=== PATIENT | female | born 1975 | race Caucasian/White ===

== ENCOUNTER 2022-02-19 19:31 | Emergency (ER) | payer MEDICAID ==
[~2022-02-19] VITALS: Ht 160 cm; Wt 68.2 kg
[2022-02-19 22:00] VITALS: BP 123/79
== END 2022-02-19 22:22 | disposition home or self-care (01) ==
LOC: EMS 19:35
DX: M79.672 Pain in left foot (principal); Z90.89 Acquired absence of other organs; Z88.8 Allergy status to other drugs, medicaments and biological substances
CPT/HCPCS: 99283

== ENCOUNTER 2022-10-18 20:45 | Emergency (ER) | payer MEDICAID ==
[~2022-10-18] VITALS: Ht 160 cm; Wt 63.6 kg
[2022-10-18 21:51] LABS: COVID AG,FIA SOURCE NASOPHARYNGEAL
[2022-10-18 22:09] LABS: INFLUENZA TYPE A NEGATIVE FOR TYPE A (NEGATIVE); INFLUENZA TYPE B NEGATIVE FOR TYPE B (NEGATIVE)
[2022-10-18] MEDS ORDERED: ACET-66 PO (23:23)
[2022-10-18] MEDS ORDERED: GUAIFDM PO (23:23)
[2022-10-18] MEDS ORDERED: IBUP-1554 PO (23:23)
[2022-10-18] MEDS ORDERED: IBUPROFEN 600 MG TABLET PO ONE (23:30)
[2022-10-18] MEDS ORDERED: ACETAMINOPHEN 500 MG TABLET PO ONE (23:30)
[2022-10-18] MEDS ORDERED: GuaiFENesin/D-METHORPHAN [SUGAR-FREE] 200-20MG/10 ML SYRUP UDCUP PO ONE (23:30)
[2022-10-19] VITALS: BP 121/87
== END 2022-10-19 02:05 | disposition home or self-care (01) ==
LOC: EMS 20:45
DX: S46.912A Strain of unspecified muscle, fascia and tendon at shoulder and upper arm level, left arm, initial encounter (principal); J06.9 Acute upper respiratory infection, unspecified; Z90.49 Acquired absence of other specified parts of digestive tract; Z98.890 Other specified postprocedural states; Z88.8 Allergy status to other drugs, medicaments and biological substances; Z20.822 Contact with and (suspected) exposure to COVID-19; X50.3XXA Overexertion from repetitive movements, initial encounter; Y93.89 Activity, other specified; Y92.89 Other specified places as the place of occurrence of the external cause; Y99.0 Civilian activity done for income or pay
CPT/HCPCS: 87804; 99284; 73030-TC; Z7502; Z7610

== ENCOUNTER 2023-03-22 10:42 | Emergency (ER) | payer MEDICAID ==
[~2023-03-22] VITALS: Ht 152.4 cm; Wt 73.6 kg
[~2023-03-22 10:42] MED LIST: ACET-66 PO; GUAIFDM PO; IBUP-1554 PO
[2023-03-22] MEDS ORDERED: IBUPROFEN 600 MG TABLET PO ONE (12:15)
[2023-03-22] MEDS ORDERED: IBUP-1554 PO (12:56)
[2023-03-22 13:00] VITALS: BP 125/85
== END 2023-03-22 13:36 | disposition home or self-care (01) ==
LOC: EMS 10:43
DX: S93.602A Unspecified sprain of left foot, initial encounter (principal); M79.672 Pain in left foot; Z90.49 Acquired absence of other specified parts of digestive tract; Z98.890 Other specified postprocedural states; Z88.8 Allergy status to other drugs, medicaments and biological substances; X58.XXXA Exposure to other specified factors, initial encounter; Y93.89 Activity, other specified; Y92.89 Other specified places as the place of occurrence of the external cause; Y99.8 Other external cause status
CPT/HCPCS: 99284

== ENCOUNTER 2024-08-02 10:08 | Emergency (ER) | payer MEDICAID, OTHER ==
[~2024-08-02] VITALS: Ht 154.9 cm; Wt 66.4 kg
[2024-08-02] MEDS ORDERED: OMEP40CA21 PO (10:14)
[2024-08-02 15:24] VITALS: TEMP 98.8
[2024-08-02 16:01] VITALS: BP 132/72; PULSE 69; RESP 18; O2SAT 99
== END 2024-08-02 16:10 | disposition home or self-care (01) ==
LOC: EMS 10:08
DX: S93.402A Sprain of unspecified ligament of left ankle, initial encounter (principal); Z90.49 Acquired absence of other specified parts of digestive tract; Z98.890 Other specified postprocedural states; Z88.1 Allergy status to other antibiotic agents; X50.1XXA Overexertion from prolonged static or awkward postures, initial encounter; Y93.89 Activity, other specified; Y92.89 Other specified places as the place of occurrence of the external cause; Y99.8 Other external cause status
CPT/HCPCS: 29540; 99283